=== PATIENT | male | born 1950 | race Caucasian/White ===

== ENCOUNTER 2016-11-03 21:13 | Emergency (ER) | payer BC ==
[~2016-11-03] VITALS: Ht 175.3 cm; Wt 63.5 kg
[~2016-11-03 21:13] MED LIST: NAPROXEN EC500 MG PO
--- NOTE | 2016-11-03 21:29 | Emergency Room Report ---
History of Present Illness Time Seen by 2100 Presenting Problem in Triage Pt arrived:Ambulance Stretcher Presenting Problem:fell from standing height while walking striking face first on to gravel surface. laceration to bridge of nose and right hand Onset of symptoms date/time:11/03/16 or onset unknown for: Treatment Prior to Arrival: bleeding control [employer] Provided by:EMT Sepsis Risk Assessment: Temp: 97.9 B/P: 125/79 MAP: 94 Pulse: 84 Resp: 14 Recent fever? N Clinical Suspician of Infection? N Mental Status: 1 - Regular (Normal Baseline) Sepsis Risk:Low Sepsis Risk Have you (or family members/close friends) recently traveled outside the [place]? N If Yes, where/when: Have you had exposure to infectious disease within the past month? TB? Other? Specify: Source patient, RN notes reviewed, EMS, old records Exam Limitations no limitations Comment wm who is intoxicated had trip type injury and fell with nasal /facial injury and rt wrist but no loc or chest pain and no abd pain or focal neuro sx Cardiac Chest Pain Chest pain indicative of cardiac No Timing/Duration this evening Severity moderate ALLERGIES Coded Allergies: No Known Drug Allergies (NKDA) (11/03/16) History Medical History General Angina: No PA: No Hypertension? No Hyperlipidemia? No CHF? No COPD? No Asthma? No CVA? No Seizures? No Diabetes? No GB Disease: No MRSA? No TB? No Cancer? No Immunization Hx DT/Tetanus > 10 Years Ago Surgical Hx Previous Surgery?Y L MIDDLE FINGER Social History Smoking Hx Smoker: Current Every Day Smoker Tobacco: Yes Type Cigarettes Packs/day < 1 Pack Alcohol Alcohol: No Drugs none Review of Systems All Other Systems Reviewed and Negative Constitutional denies fever Eyes denies drainage ENT denies: ear discharge, epistaxis, throat pain. Respiratory denies cough, denies shortness of breath, denies wheezing Cardiovascular denies chest pain, denies syncope Gastrointestinal denies abdominal pain, denies diarrhea, denies vomiting Genitourinary denies: dysuria, frequency, hesitancy, hematuria. Musculoskeletal see HPI, denies back pain, joint pain, denies joint swelling, denies neck pain Skin see HPI, denies rash, other Psychiatric/Neurological see HPI, headache, denies seizure, other Physical Exam Vital Signs Vital Signs Date Time Temp Pulse Resp B/P Pulse O2 O2 Flow FiO2 Ox Delivery Rate 11/03 2320 97.9 84 14 113/65 95 11/03 2319 97.9 84 14 113/65 95 11/03 2245 97.9 84 14 105/65 95 11/03 2115 97.9 84 14 125/79 95 - WBC >12,000 or <4,000 or 10% bands? 2 or more SIRS Criteria Met? B/P:125/79 MAP:94 Creatinine >2.0? UA output<0.5ml/kg/hr for 2 hrs? Platelet count >100,000? Lactate >2.0mmol/1? INR >1.2 or PTT > than 60 sec? Evidence of Organ Dysfunction? Provider documented clinical suspician of infection? N Sepsis Criteria Count: 0 Sepsis Risk: Low Sepsis Risk General Appearance no apparent distress Eye Exam - bilateral eye PERRL, bilateral eye EOMI Ear, Nose, Throat swollen nasal area with avulsion lac and no active bleeding or septal hematoma- Neck supple Respiratory Status No: respiratory distress. Lung Sounds bilateral: lungs clear. Cardiovascular regular rate/rhythm, systolic murmur Peripheral Pulses Pulses normal Yes Gastrointestinal soft Extremities pelvis stable, abrasion rt wrist with no clinical fx Strength 4 Upper Ext (L), 4 Upper Ext (R), 4 Lower Ext (L), 4 Lower Ext (R) Neurologic alert, hvac sheet metal installer II-XII nml as tested, no motor/sensory deficits Glascow Coma Scale Glascow Coma Scale Response Value EYE response: 4 Spontaneously 4 MOTOR response: 6 OBEYS 6 VERBAL response: 4 Disoriented & Converses 4 Total 14 Reflexes Reflexes normal No Mental status normal mood/affect Skin abrasions, laceration(s), nasal avuslsion lac - no sutures needed Medical Decision Making LABS/Meds/Orders Pt receiving controlled substance in ED? No Results/Orders Laboratory Tests 11/03/165: Sodium 136, Potassium 3.5, Chloride 101, Carbon Dioxide 25, BUN 8, Creatinine 0.7 L, Estimated Creat Clear 96, Estimated GFR (MDRD) 114, Glucose 88, Calcium 8.9, Total Bilirubin 0.3, AST 12 L, ALT 18, Alkaline Phosphatase 50, Total Protein 7.7, Albumin 4.0, Globulin 3.7 H, Albumin/Globulin Ratio 1.1, WBC 11.3 H, RBC 4.56 L, Hgb 15.1, Hct 43.4, MCV 95.1, RDW 11.9, Plt Count 238, MPV 6.9 L, Gran % 72.8, Gran # 8.2 H, Lymphocytes % 19.3, Monocytes % 3.7, Eosinophils % 3.8, Basophils % 0.4, Lymphocytes # 2.2, Monocytes # 0.4, Eosinophils # 0.4, Basophils # 0.0, PUBS MCHC 34.8, MCH 33.1 H, Alcohols 229 H Current Medication Orders Sig/Josephine Start time Last Medication Dose Route Stop Time Status Admin Multi-Ingredient 0 .STK-MED ONE 11/03 2305 DC Ointment TP Diphtheria/Pertussis/ 0 .STK-MED ONE 11/03 2142 DC Tetanus Vacc IM Acetaminophen 500 MG ONCE ONE 11/03 2129 DCr 11/03 PO 11/03 Diphtheria/Pertussis/ 0.5 ML ONCE ONE 11/03 2129 DC 11/03 Tetanus Vacc IM 11/03 Acetaminophen 0 .STK-MED ONE 11/03 2116 DCr PO Orders Procedure Date/time Status DIET-NOTHING BY MOUTH 11/[address] SINUS (MAX-FACIAL W/O CONT) 11/[address] HEAD W/O CONTRAST 11/[address] CERVICAL SPINE W/O CONT. 11/[address] SCAN REQ 11/03 2125 Active WRIST-3 VIEWS-RT 11/03 2125 Active PELVIS AP ONLY 11/03 2125 Active CHEST-AP VIEW ONLY 11/03 2125 Active COMPLETE METABOLIC PANEL 11/03 2125 Complete CBC WITH AUTO DIFF 11/03 2125 Complete ALCOHOL 11/03 2125 Complete XRAY/CT/US XRAY/CT/US 1 CT head, C-spine, sinus CT interpretation by discussed w/radiologist Time results known: 2239 CT Results abnormal (nasal fx ) XRAY/CT/US 2 XRAY chest, pelvis XR interpretation by reviewed by me Xray Results no fracture seen XRAY/CT/US 3 XRAY wrist XR interpretation by reviewed by me Xray Results no fracture seen Departure Departure Time of Disposition 2319 Disposition DC Home or Self Care(routine) Clinical Impression Primary Impression: Nasal bone fracture Qualifiers: Encounter type: initial encounter Fracture type: closed Qualified Code: S02.2XXA - Fracture of nasal bones, initial encounter for closed fracture Secondary Impressions: Abrasions of multiple sites Alcohol intoxication Qualifiers: Complication of substance-induced condition: uncomplicated Qualified Code: F10.920 - Alcohol use, unspecified with intoxication, uncomplicated Fall Condition STABLE Referrals Rip ARTEAGA,Narendra Rausch Patient Instructions DI for Nose Fracture Additional Instructions see dr albarran next week and also see pcp about alcohol use Discharge Counseling Counseled pt/family regarding diagnosis, test results, medications/RX, follow up needs, alcohol counseling,> 3min Prescriptions Current Visit Scripts CEPHALEXIN (Keflex 500MG Capsule) 500 MG PO Q8H #21 [facility] ED Critical Care Critical Care No at 2333
[2016-11-03 23:11] LABS: HEMOGLOBIN 15.1 g/dL (14.1-18.0); LYMPH # 2.2 K/mm3 (0.7-4.5); LYMPH % 19.3 % (10-50)
[2016-11-03 23:20] VITALS: BP 113/65
[2016-11-03] MEDS ORDERED: KEFLEX 500MG.500 MG PO (23:22)
--- NOTE | 2016-11-04 06:14 | RADIOLOGY REPORT PS360 ---
PELVIS AP ONLY HISTORY: Fall with injury and pain fall ORDERING PHYSICIAN: Chuy Garcia MD PATIENT AGE: 66 years COMPARISON: None FINDINGS: There is a longitudinal linear density along the medial aspect of the transverse process on the left at L5. This is of questionable etiology and clinical significance. Nondisplaced fracture is not felt to be likely but not completely excluded. If there is pain in this region. CT may be of further value. There are mild degenerative changes of the hips. IMPRESSION: 1. No displaced fracture. 2. Indeterminate linear density over the L5 spinous process on the left as described above
--- NOTE | 2016-11-04 06:16 | RADIOLOGY REPORT PS360 ---
CHEST-AP VIEW ONLY HISTORY: Pain following injury fall ORDERING PHYSICIAN: Chuy Garcia MD PATIENT AGE: 66 years COMPARISON: None available FINDINGS: The cardiomediastinal silhouette and pulmonary vascularity are within normal limits. There is coarsening of bronchovascular markings and mild pleural thickening in the apices. A density is present in the left CP angle nonspecific and may be due to summation artifact. Upright PA and lateral chest may be of further value. No acute bony anomalies. IMPRESSION: 1. Coarsened bronchovascular markings with reticular nodular densities which may be seen with COPD/chronic peribronchial inflammatory change. 2. Mild nodularity left lung base nonspecific. Follow-up chest to confirm stability. 3. No acute finding
--- NOTE | 2016-11-04 06:17 | RADIOLOGY REPORT PS360 ---
WRIST-3 VIEWS-RT HISTORY: Pain following injury fall ORDERING PHYSICIAN: Chuy Garcia MD PATIENT AGE: 66 years COMPARISON: None FINDINGS: No fracture or dislocation. No lytic or blastic change. There is normal mineralization.. The joint spaces are well-preserved. No significant degenerative/arthritic changes. No erosive changes evident.. IMPRESSION: Negative wrist
--- NOTE | 2016-11-04 06:52 | RADIOLOGY REPORT PS360 ---
CT HEAD W/O CONTRAST HISTORY: Headache, pain, contusion, hematoma or contusion FALL ORDERING PHYSICIAN: Chuy Garcia MD PATIENT AGE: 66 years COMPARISON: None TECHNIQUE: Axial images obtained without contrast. Brain and bone windows reviewed. FINDINGS: No midline shift, mass effect, intracranial hemorrhage, hydrocephalus, or extra-axial fluid collection is evident. The calvarium has an unremarkable appearance. No mastoid effusion. Mild mucosal thickening ethmoid and sphenoid sinuses. IMPRESSION: No acute intracranial findings
--- NOTE | 2016-11-04 06:54 | RADIOLOGY REPORT PS360 ---
CT CERVICAL SPINE W/O CONT INDICATION: Neck pain following injury FALL ORDERING PHYSICIAN: Chuy Garcia MD PATIENT AGE: 66 years COMPARISON: None TECHNIQUE: Axial images are obtained without contrast. Sagittal and coronal reformatted images are reviewed as well. FINDINGS: Normal alignment. No fracture or dislocation. No prevertebral soft tissue swelling. Severe centrilobular emphysematous changes with a focal scarring. Scattered small lymph nodes in the neck. IMPRESSION: 1. No acute fracture. 2. Severe biapical centrilobular emphysematous change
--- NOTE | 2016-11-04 06:58 | RADIOLOGY REPORT PS360 ---
CT SINUS (MAX-FACIAL W/O CONT) CLINICAL INDICATION: Nasal pain following injury, contusion, swelling FALL ORDERING PHYSICIAN: Chuy Garcia MD PATIENT AGE: 66 years COMPARISON: None TECHNIQUE:Axial, sagittal, and coronal images are generated and reviewed without contrast COMPARISON: None FINDINGS: Minimally depressed nasal bone fracture involving the tip of the nasal bone. Fracture is not significantly displaced. There is mild leftward nasal septal deviation with prominent left-sided nasal septal spur with narrowing of the left nasal canal. No sinus air-fluid level. Mild mucosal thickening involves the ethmoid sinuses' left aspect of the sphenoid sinus, and left maxillary sinus. There is a remy bullosa on the right middle nasal turbinate. The ostiomeatal complexes are narrow but patent on both sides. Scattered small nodes present. The orbits have a unremarkable appearance. IMPRESSION: 1. Nondisplaced nasal bone fracture. 2. Mild sinus disease with leftward nasal septal deviation
== END 2016-11-03 23:46 | disposition home or self-care (01) ==
LOC: ER 21:13
PROVIDERS: Emergency Medicine
DX: S02.2XXA Fracture of nasal bones, initial encounter for closed fracture (principal); S61.412A Laceration without foreign body of left hand, initial encounter; W01.0XXA Fall on same level from slipping, tripping and stumbling without subsequent striking against object, initial encounter; Y92.89 Other specified places as the place of occurrence of the external cause; F10.920 Alcohol use, unspecified with intoxication, uncomplicated; Z72.0 Tobacco use; Z23 Encounter for immunization; S01.21XA Laceration without foreign body of nose, initial encounter; Y90.7 Blood alcohol level of 200-239 mg/100 ml